=== PATIENT | male | born 2000 | race Caucasian/White ===

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

== ENCOUNTER 2019-08-13 13:10 | Outpatient (CLI) | payer OTHER ==
--- NOTE | 2019-08-13 15:18 | MRI Report ---
Reason: MALFORMATION OF CEREBRAL VESSELS Procedure Date: 08/13/2019 Accession Number: [id number] / [id number] Procedure: MRI - Angio Brain W/O (MRA) CPT Code: Final Report FULL RESULT: EXAM MRA BRAIN EXAM DATE: 08/13/2019 01:49 PM. CLINICAL HISTORY: Malformation of cerebral vessels. Clinical history from prior studies includes: Questionable small A-comm aneurysm. COMPARISON: BRAIN ANGIO W/O 08/14/2018 9:57 AM. BRAIN ANGIO W/O 08/02/2017 8:45 AM. TECHNIQUE: Multiplanar, multisequence MRA sequences of the brain were performed. Other: None. Post-processing: Multiplanar 3D MIP reconstructions. IV Contrast: None. FINDINGS: RIGHT Internal Carotid (ICA): No aneurysm, stenosis or anomaly. Middle Cerebral (MCA): No aneurysm, stenosis or anomaly. Anterior Cerebral (JEFF): No aneurysm, stenosis or anomaly. Posterior Cerebral (MAT ROLLER): No aneurysm, stenosis or anomaly. Posterior Communicating (P-COM): No aneurysm, stenosis or anomaly. Vertebral: No aneurysm, stenosis or anomaly in the visualized upper vertebral artery. LEFT Internal Carotid (ICA): No aneurysm, stenosis or anomaly. Middle Cerebral (MCA): No aneurysm, stenosis or anomaly. Anterior Cerebral (JEFF): No aneurysm, stenosis or anomaly. Posterior Cerebral (MAT ROLLER): No aneurysm, stenosis or anomaly. Posterior Communicating (P-COM): No aneurysm, stenosis or anomaly. Vertebral: No aneurysm, stenosis or anomaly in the visualized upper vertebral artery. The left P-comm is dominant arising from the mid V4 segment. MIDLINE Anterior Communicating (A-COM): Questionable subtle bulbous appearance is once again seen at the junction of A-comm and left JEFF. Basilar Artery:No aneurysm, stenosis or anomaly. The right AICA is dominant and unremarkable. Bilateral superior cerebellar arteries are unremarkable. Other: Scattered polypoid opacification with areas of T1 shortening are seen throughout the frontal, ethmoid, and maxillary sinuses. Findings could be secondary to chronic sinusitis versus sinus fungal mycetoma. IMPRESSION: 1. Questionable bulbous appearance at junction of A-comm and left JEFF. This may be secondary to focal tortuosity rather than an aneurysm. The appearance is unchanged compared to prior MRA studies. CT angiogram of the head may be of value for thinner section evaluation. 2. Otherwise MRA of the intracranial circulation is unremarkable. RADIA
== END 2019-08-13 13:11 | disposition home or self-care (01) ==
LOC: DI 13:10
PROVIDERS: ATTEND Family Medicine
DX: Q28.3 Other malformations of cerebral vessels (principal)
CPT/HCPCS: 70544